=== PATIENT | female | born 1995 | race Caucasian/White ===

== ENCOUNTER → 2018-11-16 00:26 | Observation (INO) ==
[2018-11-16 00:05] LABS: Bilirubin,Urine Negative (Negative); Blood,Urine Negative (Negative); Clarity,Urine Cloudy (Clear); Color,Urine Yellow (Yellow); Glucose,Urine (UA) Normal (Normal); Ketones,Urine Negative (Negative); Leukocyte Esterase,Urine Small (Negative); Nitrite,Urine Negative (Negative); PH,Urine 6.5 pH Units (5.0-8.0); Protein,Urine Negative (Neg-Trace); Specific Gravity,Urine 1.006 (1.010-1.025); Urobilinogen,Urine Normal (Normal)
[2018-11-16 00:06] LABS: Amphetamine Screen,Urine Negative ng/mL (Cutoff=1000); Barbiturate Screen,Urine Negative ng/mL (Cutoff=200); Benzodiazepines Screen,Urine Negative ng/mL (Cutoff=200); Cannabinoid Screen,Urine Negative ng/mL (Cutoff = 50); Cocaine Screen,Urine Negative ng/mL (Cutoff= 300); Opiate Screen,Urine Negative ng/mL (Cutoff=300); Phencyclidine Screen,Urine Negative ng/mL (Cutoff=25)
[2018-11-16 00:48] LABS: Bacteria,Urine Few per hpf (None-Few); Hyaline Casts,Urine None Seen per lpf (None-Few); RBC,Urine 0-3 per hpf (0-3); Squamous Epithelial Cell,Urine Many per lpf (None-Few)
--- NOTE | 2018-11-16 02:07 | OB/GYN Progress Note ---
Date of Encounter: 11/16/18 Time of Encounter: 02:05 - Assessment and Plan (1) 35 weeks gestation of Status: Acute (2) Encounter for suspected PROM, with rupture of membranes not found Status: Acute Speculum exam shows thick yellow white discharge of ., No pooling, nitrazine negative. Discharged home with labor and when to return to triage precautions. Patient verbalizes understanding Subjective - Subjective Interval history: 35 and 1 weeks gestation presents to triage with complaints of leaking of fluid. Reports good movement, denies contractions or vaginal bleeding. Antepartum ROS: loss of fluid, movement normal, no vaginal bleeding, no contractions Objective - Exam FHR: auscultation normal FHR comments: Category 1 tracing Abdomen: Present: soft, gravid Comments: Speculum exam shows no pooling, normal thick white yellow discharge of . Patient states no further leaking of fluid. - Labs Labs: Abnormal lab results Urine Clarity Cloudy (Clear) A 11/15/18 23:27 Ur Specific [place] 1.006 (1.010-1.025) L 11/15/18 23:27 Ur Leukocyte Esterase Small (Negative) H 11/15/18 23:27 Urine Microscopic WBC 5-15 per hpf (0-3) H 11/15/18 23:27 Ur Squamous Epith Cells Many per lpf (None-Few) H 11/15/18 23:27 Ur Culture Indicated? NO. (NO) A 11/15/18 23:27
== END | disposition home or self-care (01) ==
LOC: 1NENULAB
PROVIDERS: ADMIT Advanced Practice Midwife; ATTEND Advanced Practice Midwife

== ENCOUNTER → 2018-12-02 04:09 | Observation (INO) ==
[2018-12-01 23:53] VITALS: BP 120/76
[2018-12-02 00:12] LABS: Amphetamine Screen,Urine Negative ng/mL (Cutoff=1000); Barbiturate Screen,Urine Negative ng/mL (Cutoff=200); Benzodiazepines Screen,Urine Negative ng/mL (Cutoff=200); Cannabinoid Screen,Urine Negative ng/mL (Cutoff = 50); Cocaine Screen,Urine Negative ng/mL (Cutoff= 300); Opiate Screen,Urine Negative ng/mL (Cutoff=300); Phencyclidine Screen,Urine Negative ng/mL (Cutoff=25)
[~2018-12-02 04:09] MED LIST: Ringers Solution, Lactated 1,000 ML IVC ONE
--- NOTE | 2018-12-02 10:20 | Discharge Summary ---
Date of Encounter: 12/02/18 Time of Encounter: 04:00 - Discharge Diagnosis (1) 37 weeks gestation of Priority: Primary Status: Acute Comments: Admitted to observation for labor evaluation (2) NST (non-stress test) reactive Priority: Secondary Status: Acute Comments: Reactive, Cat I FHR, baseline 130 bpm, +15x15 accels, no decels. Periods of marked variability noted (3) Uterine contractions during Priority: Secondary Status: Acute Comments: Irregular contractions, no cervical change in >4 hours (4) GBS bacteriuria Priority: Secondary Status: Acute Comments: Patient was positive in June for GBS bacteruria and therefore will need treated with PCN during labor. - Discharge Medications Prescriptions: No Action Vit No.129/Iron/FA [ One Daily Tablet] 1 each PO DAILY Home Medications: Vit No.129/Iron/FA [ One Daily Tablet] 1 each PO DAILY 05/07/18 [History] Allergies/Adverse Reactions: Allergy/AdvReac Type Severity Reaction Status Date / Time dextromethorphan Allergy Anaphylaxis Verified 03/31/18 14:53 [From Capmist DM] guaifenesin [From Capmist DM] Allergy Anaphylaxis Verified 03/31/18 14:53 pseudoephedrine Allergy Anaphylaxis Verified 03/31/18 14:53 [From Capmist DM] Data Procedures and tests throughout hospitalization: Laboratory Tests 12/01/18 23:45 Urine Opiates Screen Negative Ur Barbiturates Screen Negative Ur Phencyclidine Scrn Negative Ur Amphetamines Screen Negative U Benzodiazepines Scrn Negative Urine Cocaine Screen Negative U Marijuana (THC) Screen Negative Ur Drug Screen Interp See Below Labs on day of discharge: Labs from last 24 hours 12/01/18 23:45 Urine Opiates Screen Negative Ur Barbiturates Screen Negative Ur Phencyclidine Scrn Negative Ur Amphetamines Screen Negative U Benzodiazepines Scrn Negative Urine Cocaine Screen Negative U Marijuana (THC) Screen Negative Ur Drug Screen Interp See Below Date of admission: 12/01/18 23:40 Primary care physician: PCP NONE Discharging clinician: Alysa Carmichael Anticipated date of discharge: 12/02/18 - Patient Status Disposition: Home, Self-Care Condition: Good Functional capacity at discharge: independent ambulation Overall status at discharge: patient is progressing back to baseline - Discharge Instructions Follow Up With: NONE,PCP [Primary Care Provider] - Additional Instructions: LABOR AND DELIVERY DISCHARGE INSTRUCTIONS Signs and Symptoms to be Reported to your Doctor Immediately: * Sudden gush, continuous or intermittent lead of fluid from vagina (note the time of gush and color of fluid) * Onset of bright red vaginal bleeding with or without pain (if you had a vaginal exam during this visit you may notice some dark red spotting. This is normal.) * Lower abdominal cramping or backache that is premenstrual-like feeling. * More than 6 contractions in one hour. * Burning during urination, having to urinate more frequently or pain in your mid-back. * A change in the baby's activity. This could be an increase or decrease in activity. * Severe headache which does not go away with tylenol. * Sudden swelling in the face, hands, arms and/or legs. * Upper abdominal pain - sometimes associated with heartburn or nausea and is not relieved by Maalox, Mylanta or Tums. * Dizziness or blurred vision or visual disturbances (seeing stars/lights). * Kick Counts One hour after a meal, lay down on one side in a quiet place. Count the number of flo the baby moves during an hour. If less than 6 movements, notify your physician. Diet: *Force fluids - 8-10 tall glasses of fluid per day. May include popsicles and jello. *Limit caffeine - this includes chocolate, coffee, tea, any soft drink containing such as all nora, Sergey Yellow and Mountain Dew - Diet and Activity Activity: resume usual activities as tolerated Diet: regular diet Hospital Course [employer] Hospital course: Patient arrived to unit with complaint of contractions today. On arrival, she was 3-4 cm per RN exam and stayed 4 cm until discharge >4 hrs later. She reports positive movement, denies vaginal bleeding and fluid leakage. Periods of marked variability were noted on FHR tracing so an IV fluid bolus was given. Contractions were irregular with high frequency, low amplitude uterine activity noted. Patient was discharged with no cervical change in > 4 hours despite contractions and is to follow up with her primary OB provider as scheduled for routine care. She was + for GBS bacteruria in and thus will need treated with PCN when she arrives for delivery. Time Attestation: Total time spent providing and/or coordinating discharge services: Time Spent: Less than 30 minutes Exam - Constitutional Vitals: Temp Pulse Resp BP 97.8 F 112 16 120/76 12/01/18 23:46 12/01/18 23:46 12/01/18 23:46 12/01/18 23:46 General appearance IM: A&O X 3, pleasant, no acute distress, answers questions appropriately - Respiratory Respiratory exam: Present: CTAB - Cardiovascular Cardiovascular exam IM: Present: RRR, +S1, +S2 - GI/Abdominal GI/Abdominal exam IM: normal bowel sounds - Rectal Rectal exam: deferred - External exam: normal external exam - Extremities Exam Extremities exam IM: Present: full ROM, normal capillary refill, normal inspection - Neurological Exam Neurological exam: alert, normal gait, oriented X3 - VTE Reasons for not Prescribing Prophylaxis: Treatment not Indicated - Low risk for VTE
== END | disposition home or self-care (01) ==
LOC: 1NENULAB
PROVIDERS: ADMIT Registered Nurse; ATTEND Registered Nurse

== ENCOUNTER → 2018-12-05 21:06 | Observation (INO) ==
[2018-12-05 17:02] LABS: Amphetamine Screen,Urine Negative ng/mL (Cutoff=1000); Barbiturate Screen,Urine Negative ng/mL (Cutoff=200); Benzodiazepines Screen,Urine Negative ng/mL (Cutoff=200); Cannabinoid Screen,Urine Negative ng/mL (Cutoff = 50); Cocaine Screen,Urine Negative ng/mL (Cutoff= 300); Opiate Screen,Urine Negative ng/mL (Cutoff=300); Phencyclidine Screen,Urine Negative ng/mL (Cutoff=25)
--- NOTE | 2018-12-05 20:24 | Discharge Summary ---
Date of Encounter: 12/05/18 Time of Encounter: 20:26 - Discharge Diagnosis (1) 37 weeks gestation of Priority: Primary Status: Acute Comments: Admitted to observation for labor evaluation (2) NST (non-stress test) reactive Priority: Secondary Status: Acute Comments: FHR 135 bpm, moderate variability, +15x15 accels, no decels. (3) Uterine contractions during Priority: Secondary Status: Acute Comments: Irregular contractions noted on monitor. No cervical change in 4 hours. - Discharge Medications Prescriptions: No Action Vit No.129/Iron/FA [ One Daily Tablet] 1 each PO DAILY Home Medications: Vit No.129/Iron/FA [ One Daily Tablet] 1 each PO DAILY 05/07/18 [History] Allergies/Adverse Reactions: Allergy/AdvReac Type Severity Reaction Status Date / Time dextromethorphan Allergy Anaphylaxis Verified 03/31/18 14:53 [From Capmist DM] guaifenesin [From Capmist DM] Allergy Anaphylaxis Verified 03/31/18 14:53 pseudoephedrine Allergy Anaphylaxis Verified 03/31/18 14:53 [From Capmist DM] Data Procedures and tests throughout hospitalization: Laboratory Tests 12/05/18 16:32 Urine Opiates Screen Negative Ur Barbiturates Screen Negative Ur Phencyclidine Scrn Negative Ur Amphetamines Screen Negative U Benzodiazepines Scrn Negative Urine Cocaine Screen Negative U Marijuana (THC) Screen Negative Ur Drug Screen Interp See Below Labs on day of discharge: Labs from last 24 hours 12/05/18 16:32 Urine Opiates Screen Negative Ur Barbiturates Screen Negative Ur Phencyclidine Scrn Negative Ur Amphetamines Screen Negative U Benzodiazepines Scrn Negative Urine Cocaine Screen Negative U Marijuana (THC) Screen Negative Ur Drug Screen Interp See Below Date of admission: 12/05/18 16:17 Discharging clinician: Alysa Carmichael Anticipated date of discharge: 12/05/18 - Patient Status Disposition: Home, Self-Care Condition: Good Functional capacity at discharge: independent ambulation Overall status at discharge: patient is progressing back to baseline - Discharge Instructions - Diet and Activity Activity: resume usual activities as tolerated Diet: regular diet Hospital Course [employer] Hospital course: Patient arrived to labor and delivery with complaints of back pain, cont ractions, and possible leakage of fluid. On admission patient was found to be 4-5 cm which is no change from the previous several days. She is 37 weeks and patient understands we cannot augment until 39 weeks gestation. She was here for 4 hours with no cervical change noted. Sterile speculum exam was completed no fluid visualized in vaginal vault. Nitrazine was negative, fern negative. Patient has an appointment on Friday with Dr. Barrios at which time she has an ultrasound to check her KENYA. She states her previous KENYA was 7 cm. Time Attestation: Total time spent providing and/or coordinating discharge services: Time Spent: Less than 30 minutes Exam - Constitutional General appearance IM: A&O X 3, pleasant, no acute distress, answers questions appropriately - Respiratory Respiratory exam: Present: CTAB - Cardiovascular Cardiovascular exam IM: Present: RRR, +S1, +S2 - GI/Abdominal GI/Abdominal exam IM: normal bowel sounds, soft - Rectal Rectal exam: deferred - External exam: normal external exam - Extremities Exam Extremities exam IM: Present: full ROM, normal capillary refill, normal inspection - Neurological Exam Neurological exam: alert, normal gait, oriented X3 - VTE Reasons for not Prescribing Prophylaxis: Treatment not Indicated - Low risk for VTE
[2018-12-05 21:21] LABS: Candida DNA Not Detected (Not Detect); Gardnerella DNA Not Detected (Not Detect); Trichomonas DNA Not Detected (Not Detect)
== END | disposition home or self-care (01) ==
LOC: 1NENULAB
PROVIDERS: ADMIT Registered Nurse; ATTEND Registered Nurse

== ENCOUNTER 2018-12-14 09:54 | Inpatient (IN) ==
[2018-12-14] MEDS ORDERED: Ondansetron 4 MG/2 ML VIAL IVP PRN (10:04)
[2018-12-14] MEDS ORDERED: Naloxone 0.4 MG/ML INJ IVP PRN (10:04)
[2018-12-14] MEDS ORDERED: *HR* Nalbuphine 10 MG/ML AMPUL IVP PRN (10:04)
[2018-12-14] MEDS ORDERED: Famotidine 20 MG/2 ML VIAL IVP PRN (10:04)
[2018-12-14] MEDS ORDERED: Metoclopramide 10 MG/2 ML VIAL IVP PRN (10:04)
--- NOTE | 2018-12-14 10:37 | OB/GYN History & Physical ---
Date of Encounter: 12/14/18 Time of Encounter: 11:27 Assessment and Plan (1) 39 weeks gestation of Current visit: Yes Status: Acute Planned IOL Start pitocin Wait to rupture to allow time for antibiotics Continue with current management O+ GBS positive urine HbSAG negative (2) Positive GBS test Current visit: Yes Status: Acute GBS positive urine Plan for PCN G x2 prior to delivery (3) NST (non-stress test) reactive Current visit: Yes Status: Acute Reactive, FHR 140 bpm, 15x15 accels, no decels (4) and not yet delivered in third trimester Current visit: Yes Status: Acute History of Present Illness Chief complaint: IOL HPI: Ms. Scott is a 23 year old female patient of Dr. Barrios, at 39+0 who presented to L&D for IOL. She is a non-smoker without significant medical history. Denies any complications with previous delivery. Admits to good movement, denies LOF or vaginal bleeding. Patient is wanting a tubal ligation paperwork has been signed. Labs: O+ GBS positive urine HbSAG negative HIV negative Treponema negative Rubella immune Varicella non-immune G/C negative Past Med Surg Social Fam HX - Past Medical History Medical history: no medical history Psychiatric history: no psych history - Past Surgical History Surgical History: no surgical history Additional surgical history: wisdom teeth, d&c - Social History Smoking Status: Never smoker Smokeless Tobacco Status: No Alcohol use: none Drug use: none - Family History Father Adopted: Godwin: Sandro Age: 47 Family Member Ethnicity: Non- Living Status: Still Living Hx Family Cardiac Disorders: Yes (HTN) Hx Family Respiratory Disorders: No Hx Family Cancer: No Hx Family GI Disorders: No Hx Family Endocrine Disorder: Yes (KIDNEY FAILURE) Hx Family Neuromuscular Disorders: No Hx Family Neurologic Disorders: No Hx Family HEENT Disorders: No Hx Family Autoimmune Disorders: No Obstetrical History - Pregnancies : 3 Para: 1 Term: 1 : 0 Ab's: 1 Livin Medications and Allergies Vit No.129/Iron/FA [ One Daily Tablet] 1 each PO DAILY 05/07/18 [History] Allergy/AdvReac Type Severity Reaction Status Date / Time dextromethorphan Allergy Anaphylaxis Verified 03/31/18 14:53 [From Capmist DM] guaifenesin [From Capmist DM] Allergy Anaphylaxis Verified 03/31/18 14:53 pseudoephedrine Allergy Anaphylaxis Verified 03/31/18 14:53 [From Capmist DM] Review of System OB - Constitutional Constitutional ROS IM: no chills, no fever(s), no frequent falls - Cardiovascular Cardiovascular: no chest pain, no leg edema, no palpitations, no pedal edema - Respiratory Respiratory: no dyspnea, no wheezing - Gastrointestinal Gastrointestinal: nausea, no abdominal pain, no constipation, no diarrhea, no vomiting - Genitourinary Genitourinary: no difficulty urinating, no dysuria - Muscloskeletal Musculoskeletal: back pain - Integumentary Integumentary: no rash, no unusual bruising - Neurological Nerological: no headache(s), no syncope - Psychiatric Psychiatric: no behavioral changes - Hematologic/Lymphatic Hematologic/Lymphatic: no easy bleeding, no easy bruising Exam - Constitutional Constitutional: well developed, well nourished, no acute distress - HEENT HEENT: EOMI, Normocephaly, Mucus Membranes Moist - Neck Neck exam: trachea midline - Lungs Respiratory exam: CTAB - Cardiovascular Cardiovascular exam: RRR, +S1, +S2 - Abdomen Abdomen: Present: bowel sounds normal. Absent: non tender - Extremities Deep Tendon Reflex Grade: 2+ Normal - Cervix Dilation: 4 Effacement: 80 Station: -1 - Uterus Uterus exam: Present: normal size (for gestation), normal contour Results Result Diagrams: 12/14/18 10:40 All other labs normal. - VTE Reasons for not Prescribing Prophylaxis: Treatment not Indicated - Low risk for VTE - Attending Attestation I examined this patient and my medical decision-making was reviewed with the Resident Physician. I agree with the documented findings, disposition and treatment plan as described except to the extent set forth below. Felix Barrios
[2018-12-14] MEDS ORDERED: Oxytocin 20 units/ LR 1000 mL 20 UNIT/1,000 ML BAG IVC SCH ×2 (10:45→20:51)
[2018-12-14] MEDS ORDERED: Penicillin G Potassium 5,000,000 UNIT in 0.9 % Sodium Chloride Mini Bag 100 ML IVPB ONE (10:50)
[2018-12-14 11:13] LABS: Amphetamine Screen,Urine Negative ng/mL (Cutoff=1000); Barbiturate Screen,Urine Negative ng/mL (Cutoff=200); Basophils % 0.2 %; Benzodiazepines Screen,Urine Negative ng/mL (Cutoff=200); Cannabinoid Screen,Urine Negative ng/mL (Cutoff = 50); Cocaine Screen,Urine Negative ng/mL (Cutoff= 300); Eosinophils # 0.1 K/mcL (0.0-0.6); Eosinophils % 0.6 %; Hematocrit 37.6 % (35.3-44.9); Hemoglobin 12.5 g/dL (11.5-15.4); Immature Granulocytes % 0.4 % (0-4); Lymphocytes # 2.4 K/mcL (0.6-4.6); Lymphocytes % 18.4 %; Mean Corpuscular HGB Conc 33.2 g/dL (31.6-35.5); Mean Corpuscular Hemoglobin 28.3 pg (28.0-33.3); Mean Corpuscular Volume 85.3 fL (83.0-100.0); Mean Platelet Volume 11.5 fL (9.4-12.4); Monocytes # 0.8 K/mcL (0.0-1.3); Neutrophils # 9.5 K/mcL (1.6-8.9); Opiate Screen,Urine Negative ng/mL (Cutoff=300); Phencyclidine Screen,Urine Negative ng/mL (Cutoff=25); Platelet Count 238 K/mcL (140-400); Red Blood Count 4.41 M/mcL (3.82-4.97); Red Cell Distribution Width 14.6 % (11.5-14.5); Segmented Neutrophils % 74.4 %
[2018-12-14] MEDS: Ringers Solution, Lactated 1,000 ML IVC SCH ×2 (11:30→15:29)
[2018-12-14] MEDS ORDERED: Epidural Premix (fent/bupiv) 110 ML EP SCH (11:45)
--- NOTE | 2018-12-14 12:00 | Anesthesia Evaluation PreOp ---
Date of Encounter: 12/14/18 Time of Encounter: 11:58 - Past History Planned Operation: ADAIR Cardiac History: Denies any Significant Hx Pulmonary History: Denies Any Significant HX HOTEL ASSISTANT MANAGER History: Denies Any Significant HX Other Medical History: Denies Any Significant HX Anesthesia History: No Prior Anesthetic Complications : Yes Alcohol Use: none Drug use: none Medications and Allergies Vit No.129/Iron/FA [ One Daily Tablet] 1 each PO DAILY 05/07/18 [History] Allergy/AdvReac Type Severity Reaction Status Date / Time dextromethorphan Allergy Anaphylaxis Verified 03/31/18 14:53 [From Capmist DM] guaifenesin [From Capmist DM] Allergy Anaphylaxis Verified 03/31/18 14:53 pseudoephedrine Allergy Anaphylaxis Verified 03/31/18 14:53 [From Capmist DM] - Meds/Allergy Pre-op Review Medications Reviewed: Yes Allergies Reviewed: Yes Beta Blockers on Current Med List: No Anesthesia Results - Labs 12/14/18 10:40 Anesthesia Exam O2 Sat Height 1.68 m Height 1.68 m Weight 104.3 kg Weight 104.3 kg - HEENT Pupil (Motor): Pupils equal Mallampati: II Teeth: Normal Oral Opening: Greater than 3 - HOTEL ASSISTANT MANAGER LOC: Oriented HOTEL ASSISTANT MANAGER Motor: Normal RUE, Normal LUE, Normal RLE, Normal LLE, Normal Face HOTEL ASSISTANT MANAGER Sensory: Normal: RUE, LUE, RLE, LLE, Face - Cardiac Rhythm: Regular Murmur: None JVD: No Carotid Bruit: No - Pulmonary Breath Sounds: bilateral Clear Respiratory Effort: Symmetrical Anesthesia Assess/Plan ASA Score: 2 Level of consciousness: Cooperative, Oriented Anesthetic Plan: General, Epidural Autologous Blood: Yes Monitoring Plan: Standard Monitors Recovery Plan: PACU Anes Supervising Prov Stmt: with first delivery in 2014, pt states that she had to come into the ER 2 days for dizziness and nausea so bad that she couldn't stand. She stated that she received IV fluids and was observed for a couple of hours and was d/c without any further complications. all questions and concerns addressed about epidural.
[2018-12-14] MEDS ORDERED: Lidocaine -MPF 1% 5 ML AMPUL ONE (12:02)
--- NOTE | 2018-12-14 13:00 | OB Labor Progress Note ---
Date of Encounter: 12/14/18 Time of Encounter: 12:59 Labor Progress Note - Subjective Subjective: Patient is doing well beginning to feel contractions. Penicillin was started late did advise patient will need to wait at least 3 hours from the time of her first dose before we ruptured her to make sure we get 2 doses and before delivery. - Cervix Cervix: 4-5/80/0 - Heart Tones Heart Tones: Heart tones 140s reactive - [place]: Contractions every 2 minutes irregular - Interventions Interventions: We will continue Pitocin planus and a spray vaginal delivery.
[2018-12-14] MEDS ORDERED: Penicillin G Potassium 2,500,000 UNIT in 0.9 % Sodium Chloride 100 ML IVPB SCH (15:00)
--- NOTE | 2018-12-14 15:19 | Anesthesia Procedures ---
Date of Encounter: 12/14/18 Time of Encounter: 15:15 Procedures: Anesthesia - Epidural/Spinal Patient ID/Chart reviewed: Yes Patient examined: Yes OB Eval: Gestational age: 39.3 OB Eval: : 3 OB Eval: Hx Para: 1 OB Eval: Dilated at (cm): 5 OB Eval: Contractions: Non-stressed pattern Consent Obtained: Yes Supplemental Oxygen: None/Room Air Site Prep: Aseptic Technique, Sterile prep and drape, Povidone-Iodine 1% Patient position: upright Local Anesthetic: Lidocaine 1% Amount of Local Anesthetic used: 3 Touhy Needle Gauge: 18 Touhy Needle Depth (cm): 8 Catheter Depth at Skin (cm): 20 Test Dose (1.5% Lido + Epi): Volume given (mls): 5 Test Dose Result: Negative Loading Dose: Other: no bolus Infusion Med: 0.125% Bupivacaine w/ 2 mcg/ml Fentanyl Infusion Rate (mls/hr): 16 ([id number] pcea) Catheter Secured in Place: Tegaderm, Tape Interspace Used: L3-L4 Loss of Resistance (THIAGO): Yes Blood: No CSF: No Paresthesia: No Procedure: pt tolerated procedure well. no complications. vss. fhr stable. test at 1505 pump at 1511
--- NOTE | 2018-12-14 17:29 | OB Labor Progress Note ---
Date of Encounter: 12/14/18 Time of Encounter: 16:45 Labor Progress Note - Subjective Subjective: Patient very comfortable not feeling her contractions. - Cervix Cervix: 6/80/0 - Heart Tones Heart Tones: heart tones 140s reactive - [place]: IUPC placed contractions irregular every 2-3 minutes - Interventions Interventions: Continue current care anticipate vaginal delivery
--- NOTE | 2018-12-14 17:31 | OB Labor Progress Note ---
Date of Encounter: 12/14/18 Time of Encounter: 17:29 Labor Progress Note - Subjective Subjective: Patient having nausea vomiting and heart tones have dropped. - Cervix Cervix: 8-9/90/+2 - Heart Tones Heart Tones: heart tones 140s and reactive Variable decelerations noted - [place]: Contractions every 2 minutes - Interventions Interventions: Anticipate normal spontaneous vaginal delivery
--- NOTE | 2018-12-14 18:27 | OB/GYN Procedure Note ---
Delivery - Delivery Date: 12/14/18 Provider: Pacheco Barrios Intrapartum events: none Delivery induction: oxytocin Delivery augmentation: rupture of membranes Delivery monitor: external FHT, external uterine, internal uterine Anesthesia: epidural Quantitated Blood Loss: 200 - (s) A Infant Delivery Date: 12/14/18 Delivery Time: 17:59 Presentation: vertex Position: SAMSON Route of delivery: Gender: Male Viability: Viable Pounds: 9 Ounces: 7 Weight Gram: 4.3 kg at 1 minute: 8 at 5 mins: 8 Shoulder Dystocia: not encountered Specimens collected: cord blood Placenta: spontaneous Cord: nuchal cord, nuchal reduced - Repair Episiotomy: none Laceration Description: Periurethral (left) - Complications Delivery complications: none Delivery comments: Patient is a 23-year-old 3 para 1011 at 39-0/7 weeks who presented for induction of labor secondary to term with favorable cervix. Patient was a good 3-4 cm on admission patient received Pitocin to get her contractions gone patient was make a nice progression we did place her penicillin due to GBS positive in her urine at the beginning of the once she had her second dose started in epidural was in place she was artificially ruptured clear fluid patient was progressing slowly and transitioned quickly patient became complete and pushed approximately 5 minutes delivering a viable male infant in right occiput anterior presentation at 1759. There was a nuchal cord 1 loose and reduced there was no meconium the infant was bulb suctioned on the abdomen Apgars were 8 at one minute, 8 at 5 minutes, weight was 9 lbs. 7 oz. Placenta was then delivered spontaneously with a three-vessel cord, sole splitter Dr. Barrios, first front ventilator Dr. Farr PGY1, anesthesia epidural estimated blood loss 200 mL. Patient had a left periurethral which was repaired with a 4-0 Vicryl in usual fashion she had a small first-degree which was not bleeding and no repair was obtained cervix and vagina was visualized intact. Patient will be observed 2 hours before being taken floor.
[2018-12-14] MEDS ORDERED: Acetaminophen 325 MG TABLET PO PRN (20:51)
[2018-12-14] MEDS ORDERED: Ibuprofen 600 MG TABLET PO PRN (20:51)
[2018-12-15] MEDS ORDERED: Ringers Solution, Lactated 1,000 ML ONE ×2 (04:05→12:02)
[2018-12-15 07:02] LABS: Basophils # 0.1 K/mcL (0.0-0.2); Basophils % 0.3 %; Eosinophils # 0.2 K/mcL (0.0-0.6); Hematocrit 31.4 % (35.3-44.9); Immature Granulocytes % 0.5 % (0-4); Lymphocytes # 3.4 K/mcL (0.6-4.6); Mean Corpuscular HGB Conc 33.1 g/dL (31.6-35.5); Mean Corpuscular Hemoglobin 28.5 pg (28.0-33.3); Monocytes % 6.8 %; Neutrophils # 10.6 K/mcL (1.6-8.9); Platelet Count 196 K/mcL (140-400); Red Blood Count 3.65 M/mcL (3.82-4.97); Red Cell Distribution Width 14.5 % (11.5-14.5); Segmented Neutrophils % 69.4 %
[2018-12-15 07:08] LABS: Hemoglobin 10.4 g/dL (11.5-15.4)
[2018-12-15] MEDS ORDERED: Prenatal Vit/FA 1 EACH TABLET PO SCH (09:00)
[2018-12-15] MEDS ORDERED: NON-FORMULARY MEDICATION 1 EACH EACH (Prenatal Vit No.129/Iron/Fa [Prenatal One Daily Tabl PO SCH (09:00)
--- NOTE | 2018-12-15 09:09 | OB/GYN Progress Note ---
Date of Encounter: 12/15/18 Time of Encounter: 09:06 - Assessment and Plan (1) (normal spontaneous vaginal delivery) Current Visit: Yes Status: Acute Doing well s/p . She has no problems and is NPO for BPS. Questions are answered and consent obtained. Subjective - Subjective Principal diagnosis: s/p Patient reports: pain well controlled, ambulating normally [place]: doing well Objective - Latest Vital Signs Latest vital signs: Vital Signs Temp Pulse Resp BP Pulse Ox 12/15/18 07:57 97.8 F 64 16 90/56 12/15/18 04:10 98.5 F 59 16 99/61 99 12/14/18 22:45 97.9 F 74 16 107/66 99 12/14/18 21:45 98.2 F 74 16 104/64 99 12/14/18 20:36 97.9 F 74 16 98/57 98 Intake and Output 12/14/18 12/15/18 12/15/18 23:59 07:59 15:59 Output Total 1350 / 1350 1300 / 1300 Balance -1350 / -350 -1300 / -1300 Output: Urine 600 / 600 1300 / 1300 Emesis 300 / 300 Catheter 450 / 450 Other: Weight 100.8 kg - Exam Lungs: bilateral: normal Chest: Normal S1, Normal S2 Extremities: Present: normal Abdomen: Present: gravid Uterus: Present: normal Uterus Position: 2 Fingers Below Umbilicus - Labs Labs: Laboratory Results - last 24 hr 12/14/18 12/14/18 12/15/18 10:40 10:40 06:47 WBC 12.8 H 15.2 H RBC 4.41 3.65 L Hgb 12.5 10.4 L D Hct 37.6 31.4 L MCV 85.3 86.0 MCH 28.3 28.5 MCHC 33.2 33.1 RDW 14.6 H 14.5 Plt Count 238 196 MPV 11.5 11.0 Immature Gran % 0.4 0.5 Seg Neutrophils % 74.4 69.4 Lymphocytes % 18.4 22.0 Monocytes % 6.0 6.8 Eosinophils % 0.6 1.0 Basophils % 0.2 0.3 Neutrophils # 9.5 H 10.6 H Lymphocytes # 2.4 3.4 Monocytes # 0.8 1.0 Eosinophils # 0.1 0.2 Basophils # 0.0 0.1 Urine Opiates Screen Negative Ur Barbiturates Screen Negative Ur Phencyclidine Scrn Negative Ur Amphetamines Screen Negative U Benzodiazepines Scrn Negative Urine Cocaine Screen Negative U Marijuana (THC) Screen Negative Ur Drug Screen Interp See Below
[2018-12-15] MEDS ORDERED: Ondansetron 4 MG/2 ML VIAL ONE (10:57)
[2018-12-15] MEDS ORDERED: Dexamethasone 4 MG/ML VIAL ONE (10:57)
[2018-12-15] MEDS ORDERED: *HR* FentaNYL (PF) 100 MCG/2 ML VIAL ONE ×2 (10:57→12:43)
[2018-12-15] MEDS ORDERED: *HR* Succinylcholine 200 MG/10 ML VIAL IVP ONE (10:57)
[2018-12-15] MEDS ORDERED: *HR* Propofol 200 MG/20 ML VIAL IVP ONE ×2 (10:57→11:04)
[2018-12-15] MEDS ORDERED: Lidocaine -MPF 2% 5 ML VIAL ONE (10:57)
[2018-12-15] MEDS ORDERED: *HR* Phenylephrine 10 MG/ML VIAL ONE (11:01)
[2018-12-15] MEDS ORDERED: Ketorolac 30 MG/ML VIAL ONE (12:15)
--- NOTE | 2018-12-15 13:21 | Anesthesia Evaluation Post Op ---
Date of Encounter: 12/15/18 Time of Encounter: 13:21 - Vital Signs Vital Signs: Patient's vital signs have been reviewed. Patient is stable postoperatively and has adequately recovered from anesthesia. Patient is determined to have stable airway patency and respiratory function including respiratory rate and oxygen saturation. Patient has a stable heart rate, blood pressure and adequate hydration. Patients mental status is acceptable. Patients temperature is appropriate. Pain and nausea are adequately controlled.
--- NOTE | 2018-12-15 13:25 | OB/GYN Procedure Note ---
OB-CEO: Procedure - Diagnosis Date of procedure: 12/15/18 Pre-op diagnosis: Multiparity desires permanent sterilization Post-op diagnosis: same - Procedure Procedure: Modified [place] bilateral partial salpingectomy Surgeon: Oleg Bravo Was there an environmental engineering assistant present: No Anesthesia Type: General Estimated blood loss (cc): 30 Fluids: crystalloid Procedure Complications: None Specimens collected: Bilateral tubal segments Disposition: PACU Findings: Normal tubes bilaterally Narrative: Patient's 23 multiparous female strong desire permanent sterilization. She is aware operative risks and signed appropriate consent. Description procedure: Patient was taken operating room where general anesthesia was monitored. She is prepped draped in usual sterile fashion. Scalp was used to make a small incision below the umbilicus which was sharply take down the fascia. Fascia incised midline fascial incision was extended laterally. Peritoneum was tented upwards and entered sharply without difficulty. Left fallopian tube was identified double ligated with oh plain catgut suture. Right fallopian tube was then identified double ligated with 0 plain catgut suture. Approximately 3 cm segment of each tube was removed. Hemostasis was ensured. Fascia was closed 0 Vicryl running manner. Closed the fascia again irrigation performed hemostasis was ensured. Skin edges were closed with 4-0 Vicryl. All sponge counts counts are correct patient taken recovery in good condition.
[2018-12-15 15:16] VITALS: BP 124/78
--- NOTE | 2018-12-15 21:28 | Event Note ---
Date of Encounter: 12/14/18 Time of Encounter: 15:20 SVE with AROM for moderate amount of clear fluid. SVE 5-[address] Barrios aware of AROM.
== END 2018-12-15 18:45 | disposition home or self-care (01) | DRG 541 ==
LOC: 1NENULAB 09:54 → 1NENUOBS 20:36
PROVIDERS: ADMIT Obstetrics & Gynecology; ATTEND Obstetrics & Gynecology